=== PATIENT | male | born 1975 | race Hispanic/Latino ===

== ENCOUNTER 2019-03-04 10:37 | Emergency (ER) | payer MEDICARE ==
[2019-03-04 10:49] VITALS: RESP 16; TEMP 98.3; O2SAT 98
[2019-03-04] MEDS ORDERED: Tetracaine 0.5% Ophth 2 ML BOTTLE OS STA (11:07)
[2019-03-04] MEDS ORDERED: Fluorescein 1 mg Ophthalmic Strip OS STA (11:08)
[2019-03-04] MEDS ORDERED: Fluorescein 1 mg Ophthalmic Strip ONE (11:10)
[2019-03-04] MEDS ORDERED: Tetracaine 0.5% Ophth (OR ONLY) ONE (11:10)
--- NOTE | 2019-03-04 11:36 | C.PDOC ---
History Of Present Illness 43 year old male presents to the ED for left eye pain and foreign body sensation. Reports he was cleaning the house and felt something fall in his left eye 5 days ago and since then he has had the pain. States he used eye drops with minimal relief. Denies any change in vision, blurry vision, decreased vision, fever, chills, or any other symptoms. Time Seen by Provider: 03/04/19 10:54 Chief Complaint (Nursing): Eye Problem History Per: Patient History/Exam Limitations: no limitations Onset/Duration Of Symptoms: Days (5) Current Symptoms Are (Timing): Still Present Quality: "Pain" Associated Symptoms: Pain, FB Sensation Past Medical History Reviewed: Historical Data, Nursing Documentation, Vital Signs Vital Signs: Last Vital Signs Temp 98.3 F 03/04/19 10:46 Pulse 84 03/04/19 10:46 Resp 16 03/04/19 10:46 BP 139/73 03/04/19 10:46 Pulse Ox 98 03/04/19 10:46 - Medical History PMH: No Chronic Diseases Surgical History: No Surg Hx - [facility] Procedures INJECT/INFUSE NEC (07/01/15) Family History: States: No Known Family Hx - Social History Hx Alcohol Use: Yes Hx Substance Use: No - Immunization History Hx Tetanus Toxoid Vaccination: No Hx Influenza Vaccination: No Hx Pneumococcal Vaccination: No Review Of Systems Except As Marked, All Systems Reviewed And Found Negative. Constitutional: Negative for: Fever, Chills Eyes: Positive for: Pain (left eye ). Negative for: Vision Change Physical Exam - Physical Exam Appears: Non-toxic, No Acute Distress Skin: Warm, Dry, No Rash Head: Normacephalic Eye(s): bilateral: PERRL, EOMI, right: Normal Inspection, left: Other (swellin and mild erythema to upper eyelid, conjunctival injection to eye, no FB seen on eyelid eversion ) Ear(s): Bilateral: Normal Nose: Normal Oral Mucosa: Moist Tongue: Normal Appearing Lips: Normal Appearing Neck: Supple Chest: Symmetrical Cardiovascular: Rhythm Regular Respiratory: Normal Breath Sounds, No Rales, No Rhonchi, No Wheezing Neurological/Psych: Oriented x3, Normal Speech Gait: Steady ED Course And Treatment O2 Sat by Pulse Oximetry: 98 (RA) Pulse Ox Interpretation: Normal Medical Decision Making Medical Decision Making: Plan - Fluorescein 1mg OS - Tetracaine Soln 1 drop OS After Fluorescein staining, positive uptake at 3 o'clock position. Patient feels comfortable going home and will be discharged. Patient given follow up instructions. Instructed to return to ER if symptoms worsen or new symptoms arise. Disposition - Disposition Referrals: Niko Loza MD [Staff Provider] - Disposition: HOME/ ROUTINE Disposition Time: 11:59 Condition: GOOD Additional Instructions: Follow up with the Eye doctor within 1-2 days. Return if worsened. Prescriptions: Erythromycin 0.5% [Erythromycin] 1 applic OS TID #1 tube Instructions: Corneal Abrasion (DC) Forms: ([employer] ([place]), Work Excuse - Clinical Impression Clinical Impression: Corneal abrasion - PA / STOCK COUNTER / Resident Statement MD/DO has reviewed & agrees with the documentation as recorded. - Scribe Statement The provider has reviewed the documentation as recorded by the Scribe Apple Patel All medical record entries made by the Scribe were at my direction and personally dictated by me. I have reviewed the chart and agree that the record accurately reflects my personal performance of the history, physical exam, medical decision making, and the department course for this patient. I have also personally directed, reviewed, and agree with the discharge instructions and disposition.
[2019-03-04] MEDS ORDERED: Erythromycin 0.5% Ophth Oint 1 APPLIC/3.5 G OS STA (11:55)
[2019-03-04] MEDS ORDERED: Erythromycin 0.5% Ophth Oint 1 APPLIC/3.5 G ONE (12:07)
[2019-03-04 12:10] VITALS: BP 132/85; PULSE 72
== END 2019-03-04 12:09 | disposition home or self-care (01) ==
LOC: C.ER 10:37
DX: S05.02XA Injury of conjunctiva and corneal abrasion without foreign body, left eye, initial encounter (principal); X58.XXXA Exposure to other specified factors, initial encounter